=== PATIENT | female | born 1965 | race American Indian/Alaskan Native ===

== ENCOUNTER 2019-05-15 11:38 | Emergency (ER) | payer BC, OTHER ==
[2019-05-15 12:38] LABS: Basophils % (Auto) 0.5 % (0.0-1.8); Eosinophils # (Auto) 0.1 K/mm3 (0.0-0.4); Eosinophils % (Auto) 1.1 % (0.0-4.3); Hematocrit 37.1 % (30.3-42.9); Hemoglobin 12.1 gm/dl (10.1-14.3); Lymphocytes # (Auto) 1.5 K/mm3 (1.2-5.4); Lymphocytes % (Auto) 17.9 % (13.4-35.0); Mean Corpuscular HGB Conc 33 % (30-34); Mean Corpuscular Volume 89 fl (79-97); Monocytes # (Auto) 0.7 K/mm3 (0.0-0.8); Monocytes % (Auto) 8.3 % (0.0-7.3); Platelet Count 249 K/mm3 (140-440); Red Blood Count 4.15 M/mm3 (3.65-5.03)
[2019-05-15 13:02] LABS: Alanine Aminotransferase 16 units/L (7-56); Albumin 4.2 g/dL (3.9-5); BUN/Creatinine Ratio 10; Blood Urea Nitrogen 7 mg/dL (7-17); Calcium 9.4 mg/dL (8.4-10.2); Hemolysis Index 3
[2019-05-15 13:17] LABS: Bacteria,Urine 1+ /HPF (Negative); Bilirubin,Urine NEG (Negative); Blood,Urine NEG (Negative); Color,Urine Yellow (Yellow); Mucus,Urine 3+ /HPF; Urobilinogen,Urine < 2.0 mg/dL (<2.0)
[2019-05-15] MEDS ORDERED: NORCO 5/325 PO ONE (15:16)
--- NOTE | 2019-05-15 16:19 | Ultrasound Report ---
LIMITED RUQ ABDOMINAL ULTRASOUND INDICATION: upper abdominal pain. COMPARISON: No relevant prior imaging study available. FINDINGS: Pancreas: Visualized portions show no significant abnormality. Abdominal Aorta: No significant abnormality. IVC: No significant abnormality. Liver: No significant abnormality. Normal hepatopedal blood flow in the main portal vein. Gallbladder: No significant abnormality. Bile ducts: No significant abnormality. Common bile duct measures 5.5 mm. Right kidney: No significant abnormality visualized.. Free fluid: None. Additional Findings: None. IMPRESSION: Unremarkable right upper quadrant ultrasound. Signer Name: Donnie Lazar Jr, MD Signed: 05/15/2019 4:14 PM Workstation Name: [id number]
--- NOTE | 2019-05-15 17:00 | Emergency Department Report ---
HPI - General Chief Complaint: Abdominal Pain - HPI HPI: 53-year-old Lauren female presents to the emergency department with complaint of upper abdominal pain that has been going on for the past 3 days. It is associated with some nausea without vomiting. She denies any fever. She denies any dysuria, vaginal bleeding or discharge. No past medical history. However this same set of symptoms has occurred twice in the past, about a year in between each episode. The pain worsens when she is laying flat. It appears to improve with a heating pad across her abdomen. No recent travel or sick contacts at home. ED Past Medical Hx - Past Medical History Previous Medical History?: No - Surgical History Additional Surgical History: cyst removed from left chest - Social History Smoking Status: Never Smoker Substance Use Type: None - Medications Home Medications: Home Medications Medication Instructions Recorded Confirmed Last Taken Type traMADol [Ultram] 50 mg PO Q4HR PRN #30 tablet 03/20/16 Unknown Rx HYDROcodone/APAP 5-325 [[place] 1 each PO Q6HR PRN #12 tablet 05/15/19 Unknown Rx 5/325] ED Review of Systems ROS: Stated complaint: ABD PAIN/EXTREME Other details as noted in HPI Comment: All other systems reviewed and negative Constitutional: denies: chills, fever Eyes: denies: eye pain, vision change ENT: denies: ear pain, throat pain Respiratory: denies: cough, shortness of breath Cardiovascular: denies: chest pain, palpitations Gastrointestinal: abdominal pain, nausea. denies: vomiting Genitourinary: denies: dysuria, discharge Musculoskeletal: denies: back pain, arthralgia Skin: denies: rash, lesions Neurological: denies: headache, weakness Physical Exam - Physical Exam Vital Signs: Vital Signs 05/15/19 11:50 Temperature 98.2 F Pulse Rate 87 Respiratory 14 Rate Blood Pressure 126/76 [Left] O2 Sat by Pulse 99 Oximetry Physical Exam: GENERAL: The patient is well-developed well-nourished. HENT: Normocephalic. Atraumatic. Patient has moist mucous membranes. EYES: Extraocular motions are intact. NECK: Supple. Trachea is midline. CHEST/LUNGS: Clear to auscultation. There is no respiratory distress noted. HEART/CARDIOVASCULAR: Regular. There is no tachycardia. There is no murmur. ABDOMEN: Abdomen is soft. Upper abdominal tenderness to palpation. No guarding. Patient has normal bowel sounds. There is no abdominal distention. SKIN: Skin is warm and dry. NEURO: The patient is awake, alert, and oriented. The patient is cooperative. The patient has no focal neurologic deficits. Normal speech. MUSCULOSKELETAL: There is no tenderness or deformity. There is no limitation range of motion. There is no evidence of acute injury. ED Course Vital Signs 05/15/19 11:50 Temperature 98.2 F Pulse Rate 87 Respiratory 14 Rate Blood Pressure 126/76 [Left] O2 Sat by Pulse 99 Oximetry ED Medical Decision Making - Lab Data Result diagrams: 05/15/19 11:58 05/15/19 11:58 - Radiology Data Radiology results: report reviewed, image reviewed interpreted by me: Abdominal x-ray shows nonspecific nonobstructive bowel gas Upper abdominal ultrasound does not show any acute process - Medical Decision Making This patient presents with a three-day history of some upper abdominal pain and some nausea without vomiting. Her abdomen is soft, nondistended and nontoxic in appearance. There is some mild right upper quadrant and epigastric tenderness to palpation without guarding. Labs are unremarkable including CBC, metabolic panel, urinalysis. Abdominal x-ray shows nonspecific nonobstructive bowel gas. Abdominal ultrasound did not show any acute process including any signs of cholelithiasis or cholecystitis. Patient is feeling better with a single pain pill. We discussed risks versus benefits of getting a CT scan at this time and we have mutually decided to avoid it for now. The patient will follow-up with her primary care physician and has been given a referral for gastroenterology. She will return to the ER with any worsening of her symptoms or any acute distress. - Differential Diagnosis gastritis, pancreatitis, cholelithiasis, cholecystitis Critical Care Time: No Critical care attestation.: If time is entered above; I have spent that time in minutes in the direct care of this critically ill patient, excluding procedure time. ED Disposition Clinical Impression: Upper abdominal pain Disposition: -01 TO HOME OR SELFCARE Is pt being admited?: No Condition: Stable Instructions: Abdominal Pain (ED) Additional Instructions: Please follow-up with your primary care physician. I am also giving you a referral for [facility] to follow up regarding your abdominal pain. Return to the emergency Department with any worsening of your symptoms or any acute distress. You have been prescribed a medication that is sedating and therefore should not be taken prior to driving, working, and responsible for children and in no way should be mixed with alcohol of any quantity. Prescriptions: HYDROcodone/APAP 5-325 [[place] 5/325] 1 each PO Q6HR PRN #12 tablet PRN Reason: Pain Referrals: [facility] [Provider Group] - 3-5 Days PRIMARY CARE,MD [Primary Care Provider] - 2-3 Days Forms: Work/School Release Form(ED) Time of Disposition: 17:00
--- NOTE | 2019-05-15 17:12 | XRay Report ---
ABDOMEN 2 VIEW(S) INDICATION / CLINICAL INFORMATION: abd pain she. COMPARISON: None available. FINDINGS: TUBES / LINES: None. BOWEL GAS PATTERN: Nonobstructive bowel gas pattern. Negative for free air or suspicious calcificatio n. ADDITIONAL FINDINGS: Previous bilateral tubal ligation. IMPRESSION: 1. No significant abnormality. Signer Name: Tc Parker MD Signed: 05/15/2019 5:07 PM Workstation Name: [id number]
[2019-05-15 17:40] VITALS: BP 143/69
== END 2019-05-15 17:38 | disposition home or self-care (01) ==
LOC: ED 11:38
DX: R10.811 Right upper quadrant abdominal tenderness (principal); R11.2 Nausea with vomiting, unspecified; R10.13 Epigastric pain; Z98.890 Other specified postprocedural states; Z79.899 Other long term (current) drug therapy
CPT/HCPCS: 36415; 74019; 76705; 80053; 81001; 83690; 85025

== ENCOUNTER 2019-05-24 09:19 | Outpatient (CLI) | payer BC ==
[2019-05-24] MEDS ORDERED: SINCALIDE 5 MCG VIAL IV ONE (10:10)
[2019-05-24] MEDS ORDERED: WATER FOR INJ Sterile (PF) 10 ML IV ONE (10:11)
--- NOTE | 2019-05-28 12:26 | Nuclear Medicine Report ---
NUCLEAR MEDICINE HEPATOBILIARY SCAN INDICATION: R10.13 ABDOMINAL PAIN. Right upper quadrant pain, constipation, nausea TECHNIQUE: Radiotracer: Tc-99m mebrofenin (by IV): 5.2 mCi. Gallbladder Stimulant: 1.8 mcg of CCK FINDINGS: Hepatic activity: Normal. Biliary activity: Normal. Common bile duct activity at 10 minutes. Gallbladder activity: Normal at 15 minutes. Small bowel activity: Normal at 20 minutes. The gallbladder ejection fraction measures 35%. The patient reports the same symptoms were reproduced during the infusion of CCK. IMPRESSION: No biliary obstruction. Signer Name: Donnie Lazar Jr, MD Signed: 05/28/2019 12:22 PM Workstation Name: [id number]
== END 2019-05-24 09:20 | disposition home or self-care (01) ==
LOC: NM 09:19
PROVIDERS: ATTEND Internal Medicine Gastroenterology
DX: K59.00 Constipation, unspecified (principal); R10.13 Epigastric pain
CPT/HCPCS: 78227; A9537; J2805